=== PATIENT | female | born 1995 | race Caucasian/White ===

== ENCOUNTER 2017-10-08 19:48 | Emergency (ER) | payer MEDICAID ==
[~2017-10-08] VITALS: Ht 160 cm; Wt 77.0 kg
[2017-10-08 21:20] VITALS: BP 119/76
== END 2017-10-08 21:25 | disposition home or self-care (01) ==
LOC: EMS 19:49
DX: H61.21 Impacted cerumen, right ear (principal); E03.9 Hypothyroidism, unspecified; Z88.0 Allergy status to penicillin
CPT/HCPCS: 69209; 99283

== ENCOUNTER 2020-01-14 19:40 | Emergency (ER) | payer MEDICAID ==
[~2020-01-14] VITALS: Ht 157.5 cm; Wt 81.8 kg
[2020-01-14 20:14] VITALS: BP 129/78
[2020-01-14] MEDS ORDERED: DiphenhydrAMINE HCL 25 MG CAPSULE PO ONE (20:30)
== END 2020-01-14 20:42 | disposition home or self-care (01) ==
LOC: EMS 19:40
DX: L50.9 Urticaria, unspecified (principal); E03.9 Hypothyroidism, unspecified

== ENCOUNTER 2020-01-16 13:10 | Emergency (ER) | payer MEDICAID ==
[~2020-01-16] VITALS: Ht 157.5 cm; Wt 81.8 kg
[2020-01-16] MEDS ORDERED: DIPH25CA85 PO (13:39)
[2020-01-16] MEDS ORDERED: DIPH12.55 PO (13:39)
[2020-01-16] MEDS ORDERED: LEVO75 PO (13:39)
[2020-01-16] MEDS ORDERED: PRED20 PO (13:39)
[2020-01-16] MEDS ORDERED: FAMOTIDINE 20 MG TABLET PO ONE (16:00)
[2020-01-16] MEDS ORDERED: DEXAMETHASONE SOD PHOS 4 MG/ML 5 ML VIAL IM ONE (16:00)
[2020-01-16 16:25] VITALS: BP 123/69
== END 2020-01-16 17:02 | disposition home or self-care (01) ==
LOC: EMS 13:14
DX: L50.9 Urticaria, unspecified (principal); E03.9 Hypothyroidism, unspecified; Z88.0 Allergy status to penicillin
CPT/HCPCS: 96372; 99283; J1100

== ENCOUNTER 2020-03-02 17:17 | Emergency (ER) | payer MEDICAID ==
[~2020-03-02] VITALS: Ht 157.5 cm; Wt 81.8 kg
[~2020-03-02 17:17] MED LIST: DIPH12.55 PO; DIPH25CA85 PO; LEVO75 PO; PRED20 PO
[2020-03-02] MEDS ORDERED: ONDANSETRON HCL 4 MG/2 ML VIAL IVP ONE (19:30)
[2020-03-02] MEDS ORDERED: SODIUM CHLORIDE 0.9% 1,000 ML IV ONE (19:30)
[2020-03-02 19:52] LABS: BASOPHILS % (AUTO) 0.2 % (0.0-2.0); EOSINOPHILS % (AUTO) 0 % (1.0-6.0); HEMATOCRIT 44.2 % (36-46); HEMOGLOBIN 15.2 g/dL (12.0-16.0); LYMPHOCYTES # (AUTO) 0.7 K/uL (1.0-4.8); LYMPHOCYTES % (AUTO) 10.6 % (22.0-44.0); MEAN CORPUSCULAR HEMOGLOBIN 30.7 pg (26.0-34.0); MEAN CORPUSCULAR HGB CONC 34.3 G/dL (31.0-37.0); MEAN CORPUSCULAR VOLUME 90 fL (80-100); MONOCYTES # (AUTO) 0.3 K/uL (0.1-1.0); MONOCYTES % (AUTO) 4.4 % (2.0-9.0); NEUTROPHILS # (AUTO) 5.2 K/uL (1.8-7.7); NEUTROPHILS % (AUTO) 84.8 % (40.0-70.0); PLATELET COUNT (AUTO) 186 K/uL (150-450); RED BLOOD CELL COUNT(AUTO) 4.94 MIL/uL (4.00-5.20); RED CELL DISTRIBUTION WIDTH 13.9 % (11.5-14.5)
[2020-03-02 20:08] LABS: ANION GAP 8 mmol/L (8-16); CALCIUM, TOTAL 8.7 mg/dL (8.8-10.5); CARBON DIOXIDE 24 mmol/L (22-29); CHLORIDE 101 mmol/L (98-107); CREATININE 1.09 mg/dL (0.60-1.30); GLOMERULAR FILTR. RATE CALC > 60 mL/min (>60); GLUCOSE,RANDOM 114 mg/dL (70-110); POTASSIUM 4.3 mmol/L (3.5-5.1); SODIUM SERUM 133 mmol/L (136-145); UREA NITROGEN, BLOOD 16 mg/dL (7-18)
[2020-03-02 20:18] LABS: ALANINE AMINOTRANSFERASE 38 U/L (12-78); ALBUMIN 3.3 g/dL (3.4-5.0); ALKALINE PHOSPHATASE 56 U/L (46-116); ASPARTATE AMINOTRANSFERASE 33 U/L (15-37); BILIRUBIN,TOTAL 0.5 mg/dL (0.1-1.0); HCG,QUANTITATIVE 1 mIU/mL (0-6); LIPASE 255 U/L (73-393)
[2020-03-02] MEDS ORDERED: SODIUM CHLORIDE 0.9% 250 ML IV ONE (21:00)
[2020-03-02] MEDS ORDERED: ACETAMINOPHEN 325 MG TABLET PO ONE (21:00)
[2020-03-02] MEDS ORDERED: DEXAMETHASONE SOD PHOS 4 MG/ML 5 ML VIAL IVP ONE (21:00)
[2020-03-02] MEDS ORDERED: AZITHROMYCIN 500 MG/NS 250 ML IV ONE (21:00)
[2020-03-02 22:45] VITALS: BP 119/69
[2020-03-04] MEDS ORDERED: ONDA-104 PO (17:57)
[2020-03-04] MEDS ORDERED: AZIT-104 PO (17:57)
== END 2020-03-02 22:58 | disposition home or self-care (01) ==
LOC: EMS 17:17
DX: U07.1 COVID-19 (principal); J12.89 Other viral pneumonia; R11.2 Nausea with vomiting, unspecified; R51.9 Headache, unspecified
CPT/HCPCS: 36415; 71045; 80053; 83690; 84702; 85025; 96361; 96365; 96375; 99284; J0456; J1100; J2405; J7030; J7050